=== PATIENT | female | born 1960 | race Caucasian/White ===

== ENCOUNTER → 2017-07-08 | Day surgery (SDC) | payer BC ==
[~2017-07-08] MED LIST: DEXAMETHASONE SOD PHOS 4 MG/ML VIAL ONE; EPINEPHrine HCL (1:1000) 1 MG/ML VIAL ONE; LACTATED RINGER'S 1000 ML INJ 1,000 ML ONE; MIDAZOLAM HCL 2 MG/2 ML VIAL ONE; MOXIFLOXACIN 0.5% OPHT SOLN 3 ML BTL ONE; ONDANSETRON HCL 4 MG/2 ML VIAL IV PUSH ONE; PHENYLEPHRINE HCL 10% OPTH SOLN 5 ML BTL ONE; PROPOFOL 200 MG/20 ML AMP IV ONE; SODIUM CHLORIDE 0.9% INJ 10 ML ONE; TETRACAINE 0.5% OPTH SOLN 4 ML BTL ONE; TOBRAMYCIN/DEXAMETHASONE OPTH OINT 3.5 GM TUBE ONE; ceFAZolin INJ 1,000 MG VIAL ONE; prednisoLONE ACETATE 1% OPHT SUSP 5 ML BTL ONE
--- NOTE | 2017-07-14 05:43 | MP ---
cc: JOHN PAUL KRUSE MD DATE OF SURGERY 07/08/2017 PREOPERATIVE DIAGNOSES Vitreous opacities/debris right eye. Retinal tears right eye. POSTOPERATIVE DIAGNOSES Vitreous opacities/debris right eye. Retinal tears right eye. PROCEDURE Pars plana vitrectomy, endolaser, air-fluid exchange, insertion of intravitreal Kenalog right eye. COMPLICATIONS None. BLOOD LOSS Less than [address] Davis general. INDICATION FOR PROCEDURE This is a delightful patient who presented with debilitating vitreous opacities. The patient had problems with daily life and elected for surgical correction, understanding the risks, benefits and alternatives. PROCEDURE NOTE After informed consent was obtained, the patient was brought to the operating room. General anesthesia was established. The right eye was prepped and draped in a sterile fashion with Betadine in the conjunctival fornix. A three-port pars plana vitrectomy was established with self-retaining infusion cannula. Core vitreous was evacuated along with numerous fairly dense vitreous opacities. Scleral depression examination revealed a superior and angle retinal tear which was treated with endolaser. A partial air-fluid exchange was carried out. Intravitreal Kenalog was instilled. Trocars were removed and sclerotomies closed. Subconjunctival injection of Ancef and dexamethasone were given. The eye was patched with Tobramycin ointment. The patient was brought to the recovery room in stable condition. She will continue followup with [facility] for her postoperative care. John Paul Kruse MD KW/SSB /12:05 AM /8:27 AM
== END | disposition home or self-care (01) ==
LOC: ESDC 08:29
PROVIDERS: ATTEND Ophthalmology
DX: H43.391 Other vitreous opacities, right eye (principal); H33.311 Horseshoe tear of retina without detachment, right eye
CPT/HCPCS: 00145; 67043; J0171; J0690; J1100; J2250; J2405; J3010; J7120

== ENCOUNTER 2018-03-12 13:46 | Day surgery (SDC) | payer BC ==
[2018-03-12] MEDS ORDERED: DILT0.05 PO (14:05)
[2018-03-12] MEDS ORDERED: ESOM1CAP16 PO (14:06)
[2018-03-12] MEDS ORDERED: FLUT50SP EACH NARE (14:07)
[2018-03-12] MEDS ORDERED: HYDR25TA5 PO (14:07)
[2018-03-12] MEDS ORDERED: LEVO125T4 PO (14:08)
[2018-03-12 14:13] VITALS: BP 206/102; PULSE 79; RESP 18; TEMP 98.2; O2SAT 97
[2018-03-12] MEDS ORDERED: DEXAMETHASONE SOD PHOS 4 MG/ML VIAL ONE ×2 (15:58→15:59)
[2018-03-12] MEDS ORDERED: SODIUM CHLORIDE 0.9% INJ 10 ML ONE (16:03)
[2018-03-12 16:44] VITALS: BP 144/74; PULSE 61; RESP 17; TEMP 98.2; O2SAT 94
--- NOTE | 2018-03-13 14:59 | RADRPT ---
CT EXAM DATE: 03/13/2018 7:04 AM EDT AGE/SEX: 58 years / Female INDICATIONS: Patient with a history of back pain. CLINICAL DATA: This is the patient's initial encounter. Patient reports that signs and symptoms have been present for > 1 year and indicates a pain score of 2/10. MEDICAL/SURGICAL HISTORY: . None . None COMPARISON: No prior exams available for comparison. FLUORO TIME (min): 9.7 IMAGE SERIES: 3 ACCESS SITE: Right L4-L5 Facet CONTRAST (cc): 1 Omnipaque (iohexol) 300 MEDICATION(S): 1cc Decadron 4mg 1cc Lidocaine IA 1cc Sodium Chloride RESPONSE: Pain Score Pre Procedure: 2/10 Pain Score Post Procedure: 0/10 . . PROCEDURE : Fluoroscopically guided facet injection. The risks, benefits and alternatives to the procedure were explained and verbal and written consent w as obtained. The site was prepped in sterile fashion. Full sterile technique was used, including ca p, mask, sterile gloves and gown and a large sterile sheet. Hand hygiene and 2% chlorhexidine and/or betadine/alcohol prep was utilized per protocol for cutaneous antisepsis. The skin and subcutaneous tissues were infiltrated with local anesthetic solution. With fluoroscopic guidance the targeted facet was localized and positive contrast was injected to con firm intra-articular position. A small synovial cyst is identified off the cephalad portion of the martha int. The prescribed medications were injected into the facet joint. The patient's pre and post procedure pain levels were recorded. CONCLUSION: 1. Uncomplicated fluoroscopically guided facet injection as above. Electronically signed by: Sherwin Carson MD 03/13/2018 2:57 PM EDT
--- NOTE | 2018-03-13 15:09 | RADRPT ---
EXAM DATE: 03/13/2018 7:04 AM EDT AGE/SEX: 58 years / Female INDICATIONS: Patient with a history of back pain. CLINICAL DATA: This is the patient's initial encounter. Patient reports that signs and symptoms have been present for > 1 year and indicates a pain score of 2/10. MEDICAL/SURGICAL HISTORY: . None . None COMPARISON: [facility], FACET INJ, LUMB, INIT LEVEL, RT, 03/12/2018. . FLUORO TIME (min): 9.7 IMAGE SERIES: 3 ACCESS SITE: Left L4-L5 Facet CONTRAST (cc): 1 Omnipaque (iohexol) 300 MEDICATION(S): 1cc Decadron 4mg 1cc Lidocaine IA 1cc Sodium Chloride RESPONSE: Pain Score Pre Procedure: 2/10 Pain Score Post Procedure: 0/10 . . PROCEDURE : Fluoroscopically guided facet injection. The risks, benefits and alternatives to the procedure were explained and verbal and written consent w as obtained. The site was prepped in sterile fashion. Full sterile technique was used, including ca p, mask, sterile gloves and gown and a large sterile sheet. Hand hygiene and 2% chlorhexidine and/or betadine/alcohol prep was utilized per protocol for cutaneous antisepsis. The skin and subcutaneous tissues were infiltrated with local anesthetic solution. With fluoroscopic guidance the targeted facet was localized and positive contrast was injected to con firm intra-articular position. The prescribed medications were injected into the facet joint. The pat ient's pre and post procedure pain levels were recorded. CONCLUSION: 1. Uncomplicated fluoroscopically guided facet injection as above. Electronically signed by: Sherwin Carson MD 03/13/2018 3:07 PM EDT
== END 2018-03-12 16:59 | disposition home or self-care (01) ==
LOC: HROP 13:46 → HRIP 13:49 → HROP 16:59
DX: M51.36 Other intervertebral disc degeneration, lumbar region (principal)
CPT/HCPCS: 64493; J1100